=== PATIENT | male | born 1970 | race Caucasian/White ===

== ENCOUNTER → 2022-05-30 | Outpatient (REF) | LOC: M PLALAB 11:22 | PROVIDERS: ATTEND Internal Medicine | DX: Z00.00 Encounter for general adult medical examination without abnormal findings (principal) ==

== ENCOUNTER → 2022-07-04 | Outpatient (CLI) | LOC: M SOG 10:16 | PROVIDERS: ATTEND Orthopaedic Surgery | DX: M54.2 Cervicalgia (principal) ==

== ENCOUNTER → 2022-08-03 | Outpatient (CLI) | payer OTHER ==
[~2022-08-03] MED LIST: ISOVUE-300 61% 50ML VIAL As Ordered ONE; LIDOCAINE 1% MDV 20ML VIAL As Ordered ONE; PROHANCE 279.3MG/ML 5ML VIAL As Ordered ONE
== END ==
LOC: M RADPRO 06:26
PROVIDERS: ATTEND Orthopaedic Surgery
DX: S43.431A Superior glenoid labrum lesion of right shoulder, initial encounter (principal); X58.XXXA Exposure to other specified factors, initial encounter; Y92.9 Unspecified place or not applicable
CPT/HCPCS: 23350; 73223; 77002; A9576; Q9967

== ENCOUNTER → 2022-09-23 | Outpatient (CLI) | payer OTHER | LOC: M RAD 11:55 | PROVIDERS: ATTEND Orthopaedic Surgery | DX: M47.22 Other spondylosis with radiculopathy, cervical region (principal) ==

== ENCOUNTER → 2023-03-01 | Outpatient (CLI) | payer OTHER | LOC: M SOG 08:35 | PROVIDERS: ATTEND Orthopaedic Surgery | DX: G56.01 Carpal tunnel syndrome, right upper limb (principal) ==

== ENCOUNTER 2023-04-10 08:50 | Day surgery (SDC) | payer OTHER ==
[~2023-04-10] VITALS: Ht 170.2 cm; Wt 115.3 kg
[~2023-04-10 08:50] MED LIST changes: +CELE100C PO; +CETI10CH PO; +GABA-284 PO; +GABA600T4 PO; +HYDR-3490 PO; -ISOVUE-300 61% 50ML VIAL As Ordered ONE; -LIDOCAINE 1% MDV 20ML VIAL As Ordered ONE; +LOSA100T46 PO; +MONT10TA97 PO; +NORV5TAB PO; +PANT40TA29 PO; -PROHANCE 279.3MG/ML 5ML VIAL As Ordered ONE; +TRAM50TA2 PO; +XARE20TA PO; +ceFAZolin SOD 2 GM in IV 1 EA IV ONE
[2023-04-10] MEDS ORDERED: propofoL 200 MG/20 ML VIAL As Ordered ONE ×2 (09:05→13:00)
[2023-04-10] MEDS ORDERED: LIDOCAINE 2% 100MG/5ML SDV (FOR ANES.) As Ordered ONE (09:05)
[2023-04-10] MEDS ORDERED: MIDAZOLAM INJ 2MG/2ML VIAL As Ordered ONE (09:05)
[2023-04-10] MEDS ORDERED: fentaNYL 100 MCG/2 ML INJECTION As Ordered ONE (09:05)
[2023-04-10] MEDS ORDERED: ONDANSETRON 4MG 2ML VIAL As Ordered ONE (09:05)
[2023-04-10] MEDS ORDERED: LR 1,000 ML IV SCH (09:40)
[2023-04-10] MEDS ORDERED: KETAMINE HCL 200MG/20ML VIAL As Ordered ONE (11:09)
[2023-04-10] MEDS ORDERED: GLYCOPYRROLATE INJ 0.2 MG/ML 2 ML VIAL As Ordered ONE (11:10)
[2023-04-10] MEDS ORDERED: ACETAMINOPHEN 1000MG 100ML IV BAG As Ordered ONE (12:40)
[2023-04-10] MEDS ORDERED: TRAM50TA2 PO (13:39)
[2023-04-10 14:05] VITALS: BP 135/79; TEMP 97.3; O2SAT 97
== END 2023-04-10 14:14 | disposition home or self-care (01) ==
LOC: M SDC 08:50
PROVIDERS: ATTEND Orthopaedic Surgery
DX: G56.01 Carpal tunnel syndrome, right upper limb (principal); I10 Essential (primary) hypertension; Z86.718 Personal history of other venous thrombosis and embolism; M54.2 Cervicalgia; M25.511 Pain in right shoulder; G57.92 Unspecified mononeuropathy of left lower limb; G56.91 Unspecified mononeuropathy of right upper limb; M10.9 Gout, unspecified; R06.83 Snoring; Z87.891 Personal history of nicotine dependence; Z98.84 Bariatric surgery status; Z88.8 Allergy status to other drugs, medicaments and biological substances; Z88.6 Allergy status to analgesic agent; Z79.899 Other long term (current) drug therapy; Z79.01 Long term (current) use of anticoagulants; Z79.891 Long term (current) use of opiate analgesic
CPT/HCPCS: 64721; J0131; J0690; J1100; J2250; J2405; J3010; S0020